=== PATIENT | male | born 1950 | race Caucasian/White ===

== ENCOUNTER 2024-11-24 09:34 | Outpatient (CLI) | payer MEDICARE, SELFPAY ==
--- NOTE | ~2024-11-24 | PE_ITS ---
EXAMINATION: PET_PETPSMAST_PT DATE: 11/24/2024 15:05 INDICATION: Malignant neoplasm of the prostate TECHNIQUE: 4.465 mCi of Illucix Ga-68([id number]) was administered i.v. Low dose computed wes graphy (CT) images were acquired from the base of the brain to the base of the brain to the proximal thighs for attenuation correction and anatomic localization. Positron emission tomography (PET) image s were acquired in the same distribution beginning 86 minutes after injection. Images including fused PET/CT images were reconstructed in axial, coronal, and sagittal planes. Automated exposure control technique was employed. The dose-length product was 1383.23mGy-cm. COMPARISON: None FINDINGS: Head/neck: Typical pattern of symmetric physiologic increased activity in the lacrimal, parotid and submandibula r glands as well as along the mucosa of the nasal and oral cavities, pharynx and hypopharynx. No path ologically enlarged cervical lymphadenopathy or suspicious foci of increased uptake in the visualized head or neck. Chest: Mild respiratory motion at the lung bases. No suspicious pulmonary nodules, pneumonia, pulmonary mary a or pleural effusion. Mild cardiomegaly. No pericardial effusion. Multiple calcified mediastinal lym ph nodes consistent with old granulomatous disease. No pathologically enlarged or PSMA avid thoracic lymphadenopathy. Abdomen/pelvis/proximal thighs: Physiologic renal accumulation and excretion of activity in the kidneys, bladder and along portions o f ureters. Photopenic defects associated with a 3.5 cm cyst at the lower pole of the right kidney. Pr ostatomegaly measuring 6.2 x 5.0 cm. There is a region of increased uptake at the right peripheral zo ne with maximal SUV of 12.5. Normal degree and slightly heterogenous pattern of increased uptake thro ughout the liver and spleen without radiologic correlate or dominant PSMA avid lesion. The gallbladde r, pancreas and bilateral adrenal glands are normal. Moderate uptake scattered throughout the bowels with typical duodenal and proximal jejunal predominance and without radiologic correlate, also likely physiologic. Moderate sigmoid diverticulosis without adjacent from trace stranding to suggest divert iculitis. Normal appendix. Small right and moderate-sized left fat-containing inguinal hernias. Likel y vasectomy clips bilaterally at the scrotum. There is a small focus of mild uptake with maximal SUV of 5.1 cm along the left internal iliac chain positioned 2.5 cm posterior to the ureter and appearing to correspond to a 10 x 7 mm lymph node suspicious for metastatic disease. There is additional small focus of increased uptake with maximal SUV of 4.4 cm along the anteroinferior margin of the right sa croiliac joint without definitive radiologic correlate and unclear whether centered in the bone or mo re anterior soft tissues. No other abnormal foci of increased uptake or pathologically enlarged lymph adenopathy in the abdomen, pelvis or proximal thighs. Musculoskeletal: Moderate cervical, thoracic and lumbar spondylosis. No suspicious lytic, blastic or other abnormally PSMA avid bone lesions. IMPRESSION: 1. . Of increased uptake at the right peripheral zone of the enlarged prostate consistent with primar y prostate cancer. 2. 10 x 7 mm PSMA may avid likely metastatic left internal iliac chain lymph node. 3. Additional small focus of mild uptake along the cephalad margin of the right sacral joint, unclear whether centered within the bone or immediately more anterior soft tissues also raising some suspici on for metastatic disease. Reviewed, dictated and finalized at location A. IMPRESSION: 1. . Of increased uptake at the right peripheral zone of the enlarged prostate consistent with primary prostate cancer. 2. 10 x 7 mm PSMA may avid likely metastatic left internal iliac chain lymph no de. 3. Additional small focus of mild uptake along the cephalad margin of the right sacral joint, unclear whether centered within the bone or immediately more ant erior soft tissues also raising some suspicion for metastatic disease.
--- OUTSIDE RECORDS SUMMARY | 2024-11-24 09:45 | XMS_ITS | Clinical Summary ---
Author Organization [facility] Address [address] [place] [id number] Care Team Providers Care Pin Feather Machine Operator Name Role Phone Marti Mccoy NP Primary Care Provider [phone] Allergies No known active allergies Medications apixaban (ELIQUIS) 5 mg tablet Take 5 mg by mouth 2 (two) times a day Active metoprolol tartrate (LOPRESSOR) 25 mg immediate release tablet Take 25 mg by mouth 2 (two) times a day Active cholecalciferol (VITAMIN D-3) 2000 unit tablet Take 6,000 Units by mouth daily Active chlorthalidone 25 mg tablet Take 25 mg by mouth daily 07/13/2021 Active Active Problems Problem Noted Date Diagnosed Date Essential hypertension 09/14/2021 Palpitations 09/14/2021 Atrial flutter 09/14/2021 Other sleep apnea 09/14/2021 Other specified hypothyroidism 09/14/2021 Morbid (severe) obesity due to excess calories 0 09/14/2021 BMI 40.0-44.9, adult 09/14/2021 Dyspnea on exertion 09/14/2021 Surgical History Surgery Date Site/Laterality Comments HERNIA REPAIR Medical History Medical History Date Comments A-fib (HCC) Alzheimer's disease (HCC) Heart failure (HCC) Social History Tobacco Use Types Packs/Day Years Used Date Smoking Tobacco: Never Personal Safety Answer Date Recorded Getting School Help Needed Not on file 07/13 Sex and Gender Information Value Date Recorded Sex Assigned at Not on file 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 Gender Identity Not on file Sexual Orientation Not on file Obstetrics History Last Filed Vital Signs Vital Sign Reading Time Taken Comments Blood Pressure 109/73 10/21/2021 10:01 AM CDT Pulse 56 10/21/2021 10:01 AM CDT Temperature 36.2 C (97.1 F) 09/14/2021 9:02 AM CDT Respiratory Rate 20 10/21/2021 10:0 1 AM CDT Oxygen Saturation 97% 09/14/2021 9:02 AM CDT Inhaled Oxygen Concentration - - Weight 140.4 kg (309 lb 9.6 oz) 022 10:01 AM CDT Height 182.9 cm (6') 10/21/2021 10:01 AM CDT Body Mass Index 41.99 10/21/2021 10:01 AM CDT Plan of Treatment Health Maintenance Due Date Last Done Comments Colon Cancer Screening-Colonoscopy 1950 Depression Screening 1950 Fall Risk Assessment 1950 Hepatitis C Screening 1950 DTaP/Tdap/Td Vaccine (1 - Tdap) 1961 Hepatitis B Screening 1968 Pneumococcal vaccine 65+ (1 of 1 - PCV) 2000 Zoster Vaccine (1 of 2) 2000 Abdominal Aortic Aneurysm (A AA) Screen 2015 Well Visit 65+ 2015 Covid-19 Vaccine ( season) 2024 08/17/2021, 12/22/2020, 12/01/2020 Influenza Vaccine (#1) 2025 Insurance MEDICARE [employer] CLAIMS OFFICE MEDICARE [employer] CLAIMS OFFICE Care Teams Pin Feather Machine Operator Relationship Specialty Start Date End Date Marti Mccoy NP [address] [place] [address] PCP - General Nurse Practitioner 07/06/21
--- OUTSIDE RECORDS SUMMARY | 2024-11-24 09:45 | XMS_ITS | Clinical Summary ---
Author Organization [facility] Address [address] [place] [address] Care Team Providers Care Gis Technician Name Role Phone Marti Mccoy SENIOR PREMIUM AUDITOR-ENGRAVER Primary Care Provider + Suman Cid MD Unavailable [phone] Yvette Mendiola MD Unavailable [phone] Wilbert Sanders MD Unavailable [phone] Source Comments [facility],non-owned Affiliates and Associated Physician Practices is amultiple site organization consisting of ambulatory clinics and hospital sitesin [place], [place], [place] and [place]. This disclosure is being madepursuant to the Care Everywhere program and may not contain all information available regarding this patient. Last updated 18.[facility] [email or web address] Allergies No known active allergies Medications * Be aware that medications may not be up to date on this document. Alwaysverify current medications with the patient. 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, unspecified whether [place] or transplanted heart 06/23/2022 BMI 40.0-44.9, adult 09/14/2021 Dyspnea on exertion 09/14/2021 Essential hypertension 09/14/2021 Morbid (severe) obesity due to excess calories 0 09/14/2021 Other sleep apnea 09/14/2021 Other specified hypothyroidism 09/14/2021 Palpitations 09/14/2021 Atrial flutter 06/13/2021 Encounters Date Type Department Care Team Description 09/05/2024 9:30 AM CDT - 09/05/2024 11:59 PM CDT Hospital Encounter [facility] - Ultrasound [address] [place] [address] Maurice Davies MD Discharge Disposition: Home or Self Care from Last 3 Months Family History Medical History Relation Name Comments Heart Failure Brother Alzheimer's Disease Father Atrial Fibrillation Father Other Maternal Grandfather cardiov ascular disease Alzheimer's Disease Maternal Grandmother Dementia Mother ALS - Amyotrophic Lateral Sclerosis Paternal Grandfath er Relation Name Status Comments Brother Father Maternal Grandfather Maternal Grandmother Mother Paternal Grandfather Social History Tobacco Use Types Packs/Day Years Used Date Smoking Tobacco: Former Cigarettes 1 14 1 971 - 1984 Smokeless Tobacco: Never Tobacco Cessation:Counseling Given: Not Answered Alcohol Use Standard Drinks/Week Comments Not Currently 0 (1 standard drink = 0.6 oz pur e alcohol) PHQ-2 Answer Date Recorded PHQ2 TOTAL SCORE 0 06/23/2022 Sex and Gender Information Value Date Recorded Sex Assigned at Not on file Legal Sex Male 5:46 PM CDT Gender Identity Not on file Sexual Orientation Not on file Last Filed Vital Signs Vital Sign Reading Time Taken Comments Blood Pressure 138/84 06/23/2022 1:42 PM WATER AEROBICS INSTRUCTOR Pulse 75 06/23/2022 1:42 PM WATER AEROBICS INSTRUCTOR Temperature 36.7 C (98.1 F) 06/23/2022 1:42 PM WATER AEROBICS INSTRUCTOR Respiratory Rate 18 06/23/2022 1:42 PM WATER AEROBICS INSTRUCTOR Oxygen Saturation 94% 06/23/2022 1:42 PM WATER AEROBICS INSTRUCTOR Inhaled Oxygen Concentration - - Weight 125.9 kg (277 lb 9.6 oz) 06/23/2022 1:42 PM WATER AEROBICS INSTRUCTOR Height 181 cm (5' 11.25) 06/23/2022 1:42 PM WATER AEROBICS INSTRUCTOR Body Mass Index 38.45 06/23/2022 1:42 PM WATER AEROBICS INSTRUCTOR Plan of Treatment Health Maintenance Due Date Last Done Comments COLOGUARD (AGES 45-75) - COLON CA SCREENING 1950 COLON MONITORING 1950 COLONOSCOPY - COLON CA SCREENING 1950 CT COLONOGRAPHY - COLON CA SCREENING 1950 Colorectal Cancer Screening 1950 FIT - COLON CA SCREENING 1950 FLEX SIG - COLON CA SCREENING 1950 PNEUMOCOCCAL VACCINE 50+ (1 of 1 - PCV) 2000 AAA SCREENING 2015 MEDICARE AWV 12 MONTHS 06/23/2023 06/23/2022, 06/23/2022 COVID-19 VACCINE (4 - 2023-2 5 season) 2024 08/17/2021, 12/22/2020, 12/01/2020 DEPRESSION SCREENING 05/14/2024 06/23/2022 INFLUENZA VACCINE (#1) 2025 DTAP/TDAP/TD VACCINES (1 - Tdap) 06/25/2025 Postponed from 1969 (Insurance Coverage) Respiratory Syncytial Virus (RSV) Vaccine Pt: or over 60 yrs (1 - 1-dose 75+ series) 06/25/2025 Postponed from 2025 (Insurance Coverage) ZOSTER VACCINE (1 of 2) 06/25/2025 Post poned from 2000 (Insurance Coverage) HEPATITIS B VACCINE Aged Out No longe r eligible based on patient's age to complete this topic HEPATITIS C SCREENING Discontinued HIB VACCINE Aged Out No longer eligi ble based on patient's age to complete this topic HPV VACCINE Aged Out No longer eligi ble based on patient's age to complete this topic MENINGOCOCCAL (Group B) VACCINE SHARED DECISION-MAKING Aged Out No longer eligible b ased on patient's age to complete this topic MENINGOCOCCAL GROUPS A/C/Y/W VACCINE Aged Out No longer eligible b ased on patient's age to complete this topic Procedures Procedure Name Priority Date/Time Associated Diagnosis Comments US ABDOMEN LIMITED Routine 09/05/2024 10 :03 AM CDT Aneurysm of splenic artery from Last 3 Months Results * US Abdomen Limited (09/05/2024 10:03 AM CDT) Anatomical Region Laterality Modality Abdomen Ultrasound 09/17/2024 10:2 7 AM CDT Impressions 09/17/2024 10:31 AM CDT The patient's known splenic artery aneurysm as seen on chest CT dated 06/15/2021 is not appreciated on ultrasound. A dedicated CT angiogram of the abdomen is recommended for further evaluation. THIS IS AN ELECTRONICALLY VERIFIED FINAL REPORT 09/17/2024 10:31 AM - Electronically signed by Pan Alston M.D. AG: PHYLLIS Report ID: [id number] Reading Location: [id number] 09/17/2024 10:[place] [address] RADIOLOGY REPORT Patient Name: LONI GUAJARDO Date of Service:09/05/2024 Date of :1950 Age:74 Sex:M Requesting PhysicianMAURICE DAVIES Examination:US ABDOMEN LIMITED EXAM DESCRIPTION: US ABDOMEN LIMITED REASON FOR STUDY: Patient had CT in 2021 that showed splenic aneurysm. He is not having any problems. Duration: . TECHNIQUE: Limited sonographic examination left upper quadrant. COMPARISON: Chest CT dated 06/15/2021 FINDINGS: The left kidney is normal in size and echogenicity. Measures 13.1 cm. No hydronephrosis is seen. The spleen is normal in size measuring 11.8 cm. Grossly normal grayscale appearance. The splenic early is poorly evaluated. The visualized portion measures 6.5 mm. It is normal flow on color Doppler. Procedure Note Pan Alston MD - 09/17/2024 [place] [address] RADIOLOGY REPORT Patient Name: LONI GUAJARDO Date of Service:09/05/2024 Date of :1950 Age:74 Sex:M Requesting Ajay DAVIES Examination:US ABDOMEN LIMITED EXAM DESCRIPTION: US ABDOMEN LIMITED REASON FOR STUDY: Patient had CT in 2021 that showed splenic aneurysm. He is not having any problems. Duration: . TECHNIQUE: Limited sonographic examination left upper quadrant. COMPARISON: Chest CT dated 06/15/2021 FINDINGS: The left kidney is normal in size and echogenicity. Measures 13.1 cm. No hydronephrosis is seen. The spleen is normal in size measuring 11.8 cm. Grossly normal grayscale appearance. The splenic early is poorly evaluated. The visualized portion measures 6.5 mm. It is normal flow on color Doppler. IMPRESSION The patient's known splenic artery aneurysm as seen on chest CT dated 06/15/2021 is not appreciated on ultrasound. A dedicated CT angiogram of the abdomen is recommended for further evaluation. THIS IS AN ELECTRONICALLY VERIFIED FINAL REPORT 09/17/2024 10:31 AM - Electronically signed by Pan Alston M.D. AG: PHYLLIS Report ID: [id number] Reading Location: [place] [address] Maurice Davies MD ORDERABLES Final Result from Last 3 Months Insurance MEDICARE [facility] MEDICARE Advance Directives Documents on File Type Date Recorded Patient Lard Tub Washer Expl anation POLST 06/17/2021 8:25 AM POLST 06/15/2021 8:42 AM * Full Code (Latest Code Status on File) Date Activated Date Inactivated Comments 06/13/2021 3:40 PM 06/14/2021 4:07 PM Care Teams Gis Technician Relationship Specialty Start Date End Date Marti Mccoy APRN-ENGRAVER [address] [place] [phone] PCP - General Nurse Practitioner Family 06/15/21 Suman Cid MD [facility] [address] [phone] Production Manufacturing Worker Cardiology 06/23/22 Yvette Mendiola MD [address] [place] [address] Ophthalmology 08/30/23 Wilbert Sanders MD [address] [place] [address] Ophthalmology 08/30/23
--- OUTSIDE RECORDS SUMMARY | 2024-11-24 09:45 | XMS_ITS | Referral Summary ---
Author Organization [facility] Address [address] [place] [address] Care Team Providers Care Regulatory And Compliance Technician Name Role Phone Marti Mccoy NP Primary Care Provider [phone] Allergies No known active allergies Medications apixaban [...] 40.0-44.9, adult 09/14/2021 Dyspnea on exertion 09/14/2021 Social History Tobacco Use Types Packs/Day Years Used Date Smoking Tobacco: Never Personal Safety Answer Date Recorded Getting School Help Needed Not on file 07/13 Sex and Gender Information Value Date Recorded Sex Assigned at Not on file 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
== END 2024-11-24 09:35 | disposition home or self-care (01) ==
PROVIDERS: PCP Family Medicine; Visit Provider Urology
DX: C61 Malignant neoplasm of prostate (principal)
CPT/HCPCS: 78815; A9596